=== PATIENT | male | born 1990 | race Two or more races ===

== ENCOUNTER 2022-09-01 01:48 | Outpatient (CLI) | payer OTHER | END 2022-09-01 23:00 | disposition home or self-care (01) | LOC: LAB 01:48 | PROVIDERS: ATTEND Obstetrics & Gynecology | DX: Z20.828 Contact with and (suspected) exposure to other viral communicable diseases (principal); Z20.818 Contact with and (suspected) exposure to other bacterial communicable diseases ==

== ENCOUNTER 2025-01-23 09:00 | Day surgery (SDC) | payer OTHER ==
[2025-01-20 09:04] VITALS: BP 160/100
[2025-01-20 09:06] LABS: URINE APPEARANCE Clear; URINE BILIRRUBIN Negative (NEGATIVE); URINE BLOOD Trace; URINE COLOR Yellow; URINE GLUCOSE Negative (NEGATIVE); URINE KETONE Trace (NEGATIVE); URINE LEUKOCYTE Negative; URINE NITRATE Negative; URINE PROTEIN Negative (NEGATIVE); URINE UROBILINOGEN 0.2 E.U./dl
[2025-01-20 09:07] LABS: URINE EPITHELIAL CELLS 1.9 uL (0.0-38.8); URINE RBC 4.5 uL (0.0-20.8); URINE WBC 5.5 uL (0.0-23.2)
[2025-01-20 09:08] LABS: BASO % 1.0 % (0.1-1.2); EOS # 0.31 (0.04-0.54); EOS % 3.9 % (0.7-7.0); LYMPH # 2.63 (1.18-3.74); LYMPH % 33.2 % (19.3-53.1); MEAN PLATELET VOLUME 11.40 fl (9.4-12.4); MONO # 0.62 (0.24-0.82); MONO % 7.8 % (4.7-12.5); NEUT # 4.27 (1.56-6.13); NEUT % 53.8 % (34.0-71.1); RED CELL DISTRIBUTION WIDTH 12.1 % (11.6-14.4)
[2025-01-20 09:25] LABS: INR 1.04
[2025-01-20 09:28] LABS: BUN CREA RATIO 12.0 (7.0-25.0); CREATININE SERUM 1.13 mg/dL (0.70-1.30); GFR 73.43; GLUCOSE FASTING 101.0 mg/dL (65-100); OSMOLALITY SERUM 286.0 MOSM/KG (275-295)
[2025-01-20 09:41] LABS: URINE BACTERIA 3.6 uL (0.0-1933); URINE CAST 0.00 uL (0.0-1.40)
[~2025-01-23] VITALS: Ht 175.3 cm; Wt 72.6 kg
[~2025-01-23 09:00] MED LIST: HYDRALAZINE HCL10 MG PO
[2025-01-23] MEDS ORDERED: KETO10TA2 PO (12:05)
[2025-01-23] MEDS ORDERED: MIRALAX17 GM PO (12:05)
[2025-01-23] MEDS ORDERED: TYLENOL ARTHRI650 MG PO (12:05)
[2025-01-23] MEDS ORDERED: TRAMADOL HCL50 MG PO (12:05)
[2025-01-23] MEDS ORDERED: BUPIVACAINE HCL 30 ML VIAL IV ONE (13:15)
[2025-01-23] MEDS ORDERED: CEFAZOLIN SODIUM 1,000 MG VIAL IV ONE (13:15)
[2025-01-23] MEDS ORDERED: MORPHINE SULFATE 4 MG/ML VIAL IV ONE (14:05)
== END 2025-01-23 15:40 | disposition home or self-care (01) ==
LOC: CIR.AMB 09:00
PROVIDERS: ATTEND Surgery
DX: K42.0 Umbilical hernia with obstruction, without gangrene (principal)
CPT/HCPCS: 49592; C1781